=== PATIENT | female | born 1985 | race Asian ===

== ENCOUNTER 2016-10-26 05:37 | Emergency (ER) | payer SELFPAY ==
[~2016-10-26] VITALS: Ht 170.2 cm; Wt 57.5 kg
[2016-10-26 05:38] VITALS: BP 118/86
[2016-10-26] MEDS ORDERED: SUMA20SP NAS (05:57)
[2016-10-26] MEDS ORDERED: SODIUM CHLORIDE 0.9% 1,000ML IVBOLUS ONE (06:00)
[2016-10-26] MEDS ORDERED: SODIUM CHLORIDE FLUSH 10ML SYR IVF ONE (06:00)
[2016-10-26] MEDS ORDERED: PROMETHAZINE 25 MG/ML, 1ML IM ONE (06:00)
[2016-10-26] MEDS ORDERED: DIPHENHYDRAMINE 50 MG/ML, 1ML IVPush ONE (06:00)
[2016-10-26] MEDS ORDERED: KETOROLAC 30 MG/1 ML IVPush ONE (06:00)
[2016-10-26] MEDS ORDERED: KETOROLAC 30 MG/1 ML ONE (06:17)
[2016-10-26] MEDS ORDERED: DIPHENHYDRAMINE 50 MG/ML, 1ML ONE (06:17)
[2016-10-26] MEDS ORDERED: PROMETHAZINE 25 MG/ML, 1ML ONE (06:17)
== END 2016-10-26 06:27 | disposition left against medical advice (07) ==
LOC: ED 06:26
DX: G43.901 Migraine, unspecified, not intractable, with status migrainosus (principal)
CPT/HCPCS: 99283